=== PATIENT | male | born 1970 | race Caucasian/White ===

== ENCOUNTER 2017-03-16 18:28 | Emergency (ER) | payer BC ==
[~2017-03-16] VITALS: Ht 188 cm; Wt 71.6 kg
[2017-03-16 18:30] VITALS: BP 161/82
== END 2017-03-16 19:59 | disposition home or self-care (01) ==
LOC: ED 19:49
DX: S20.212A Contusion of left front wall of thorax, initial encounter (principal); F12.10 Cannabis abuse, uncomplicated; W19.XXXA Unspecified fall, initial encounter; Y93.89 Activity, other specified; Y99.8 Other external cause status; Y92.009 Unspecified place in unspecified non-institutional (private) residence as the place of occurrence of the external cause
CPT/HCPCS: 99284